=== PATIENT | female | born 1930 | race Caucasian/White ===

== ENCOUNTER 2016-08-22 09:08 | Observation (INO) | payer MEDICARE, OTHER ==
[~2016-08-22 09:08] MED LIST: ACETAMINOPHEN325 MG PO; ALTACE10 MG; ALTACE10 MG PO; BAYER CHEWABLE81 MG PO; CALCIUM 500 + D1 TAB PO; CHLORTHALIDONE25 MG PO; ISOSORBIDE MONO20 MG PO; NITROSTAT0.4 MG SL; NORVASC10 MG PO; PEPCID20 MG PO; PLAVIX75 MG PO; PRILOSEC20 MG PO; SPIRIVA18 MCG INH
[2016-08-22 09:34] LABS: BASOPHILS 0.6 % (0-2); EOSINOPHILS 1.3 % (0-7); HEMOGLOBIN 12.1 g/dL (12-16); IMMATURE GRANULOCYTES 0.4 % (0-5); LYMPHOCYTES 31.3 % (15-50); MCH 28.9 pg (26.0-34.0); MCHC 31.8 g/dL (31.0-37.0); MCV 90.9 fL (80.0-100.0); MEAN PLATELET VOLUME 10.4 fL (7.4-10.4); MONOCYTES 10.9 % (2-11); NEUTROPHILS 55.5 % (40-80); PLATELET COUNT 221 10x3/uL (130-400); RBC 4.18 10x6/uL (4.00-5.40); RDW 13.9 % (11.5-14.5); WBC 5.4 10x3/uL (4.8-10.8)
[2016-08-22 09:56] LABS: ALBUMIN 3.5 g/dL (3.4-5.0); ALKALINE PHOSPHATASE 100 U/L (46-116); ALT (SGPT) 20 U/L (10-68); BILIRUBIN - TOTAL 0.29 mg/dL (0.2-1.3); CALC OSMOLALITY 280 mosm/kg (275-300); CALCIUM 8.4 mg/dL (8.5-10.1); CARBON DIOXIDE 29.6 mmol/L (21.0-32.0); CHLORIDE - SERUM 104 mmol/L (98-107); CREATININE - SERUM 0.8 mg/dL (0.6-1.3); GLUCOSE 86 mg/dL (74-106); PROTEIN - SERUM 6.8 g/dL (6.4-8.2); SODIUM 141 mmol/L (136-145); UREA NITROGEN 16 mg/dL (7-18); eGFR NON AFRICAN AMERICAN 72 mL/min (90-120)
[2016-08-22 10:08] LABS: AMYLASE - SERUM 84 U/L (25-115); CHOL - HDL RATIO 1.9 ratio (2.3-4.1); CHOLESTEROL, TOTAL 167 mg/dL (0-200); CKMB 1.3 U/L (0.0-3.6); CREATINE KINASE 65 UL (21-215); HDL CHOLESTEROL 90 mg/dL (32-96); LDL CHOLESTEROL 56 mg/dL (0-100); LDL-HDL RATIO 0.6 ratio (1.5-3.5); LIPASE 253 U/L (73-393); PRO BNP 179 pg/mL (0-450); TRIGLYCERIDE 108 mg/dL (30-200); TROPONIN-I < 0.017 ng/mL (0.000-0.060)
[2016-08-22] MEDS ORDERED: COZAAR50 MG PO (13:48)
[2016-08-23 08:09] LABS: BASOPHILS 0.7 % (0-2); EOSINOPHILS 1.8 % (0-7); HEMATOCRIT 36.3 % (36.0-48.0); HEMOGLOBIN 11.7 g/dL (12-16); IMMATURE GRANULOCYTES 0.2 % (0-5); LYMPHOCYTES 11.2 % (15-50); MCH 29.3 pg (26.0-34.0); MCHC 32.2 g/dL (31.0-37.0); MEAN PLATELET VOLUME 10.5 fL (7.4-10.4); MONOCYTES 11.7 % (2-11); NEUTROPHILS 74.4 % (40-80); PLATELET COUNT 203 10x3/uL (130-400); RBC 3.99 10x6/uL (4.00-5.40); WBC 5.5 10x3/uL (4.8-10.8)
[2016-08-23 08:18] LABS: ANION GAP 11.1 mmol/L (8-16); CALCIUM 8.3 mg/dL (8.5-10.1); CARBON DIOXIDE 28.8 mmol/L (21.0-32.0); POTASSIUM - SERUM 3.9 mmol/L (3.5-5.1)
== END 2016-08-23 15:30 | disposition home or self-care (01) ==
LOC: D.ER 09:08 → D.M2 11:20
PROVIDERS: Family Medicine; ADMIT Internal Medicine Interventional Cardiology
DX: I25.119 Atherosclerotic heart disease of native coronary artery with unspecified angina pectoris (principal); Z95.5 Presence of coronary angioplasty implant and graft; I10 Essential (primary) hypertension; K21.9 Gastro-esophageal reflux disease without esophagitis

== ENCOUNTER 2016-09-21 10:12 | Inpatient (IN) | payer MEDICARE, OTHER ==
[~2016-09-21] VITALS: Ht 154.9 cm; Wt 67.8 kg
--- NOTE | ~2016-09-21 | OP ---
PATIENT NAME: MEIR CHEEK MEDICAL RECORD: [id number] :34 LOCATION:D.M2 D.2123 ADMISSION DATE:09/22/16 SURGEON: SHAMAR RAMIREZ MD DATE OF OPERATION: 09/25/2016 PREOPERATIVE DIAGNOSES: 1. Gallstones. 2. Chronic blood loss anemia. 3. Hiatal hernia. 4. Gastroesophageal reflux disease. 5. Ernie ulcers. 6. Hypertension. 7. Coronary artery disease. POSTOPERATIVE DIAGNOSES: 1. Gallstones. 2. Chronic blood loss anemia. 3. Hiatal hernia. 4. Gastroesophageal reflux disease. 5. Ernie ulcers. 6. Hypertension. 7. Coronary artery disease. PROCEDURE: Laparoscopic cholecystectomy. SURGEON: Shamar Ramirez MD. REPORT OF PROCEDURE: The patient's abdomen was prepped and draped in sterile fashion. A cutdown was made on the superior aspect of the umbilicus, 0 Vicryls were placed in the fascia bilaterally and the fascia was incised with a 15-blade. I then bluntly entered the peritoneal cavity and placed a 12-mm Rojelio port. Under direct visualization, a 5 mm trocar was placed in the epigastrium and 2 more 5-mm trocars were placed in the right subcostal region. The gallbladder was grasped and elevated. The cystic artery and duct were dissected free and these were clipped proximally and distally and ligated in standard fashion. The gallbladder was taken off the liver bed using electrocautery and placed into the right upper quadrant. Any bleeding from the liver bed was then treated with electrocautery. The ports and insufflation were then removed and the gallbladder was taken out through the umbilicus. The umbilical fascia was closed with interrupted 0 Vicryls times 3. The wounds were irrigated out with normal saline and infused with 10 mL of 0.25% Marcaine with epinephrine. The skin incisions were all closed with subcutaneous 5-0 Monocryl and dressed appropriately. COMPLICATIONS: None. CONDITION: Stable. ANESTHESIA: General endotracheal and local. BLOOD LOSS: Minimal. TRANSINT:[id number] Voice Confirmation ID: [id number] DOCUMENT ID: [id number] OPERATIVE REPORT [id number] RADHA CHEEKVIA Adelaida SHAMAR RAMIREZ MD CC: JAMIR ADORNO MD [id number] DICTATION DATE: 09/25/16 1114 CHILD WELFARE CONSULTANT: 09/25/16 2214 DIS IN 09/25/16 [facility] [address] [place] [address]
[~2016-09-21 10:12] MED LIST changes: +COZAAR50 MG PO
[2016-09-21 10:37] LABS: BASOPHILS 0.4 % (0-2); EOSINOPHILS 1.2 % (0-7); HEMATOCRIT 36.3 % (36.0-48.0); HEMOGLOBIN 11.9 g/dL (12-16); IMMATURE GRANULOCYTES 0.2 % (0-5); LYMPHOCYTES 17.1 % (15-50); MCH 29.2 pg (26.0-34.0); MCHC 32.8 g/dL (31.0-37.0); MCV 89.2 fL (80.0-100.0); MEAN PLATELET VOLUME 9.1 fL (7.4-10.4); MONOCYTES 10.9 % (2-11); NEUTROPHILS 70.2 % (40-80); RBC 4.07 10x6/uL (4.00-5.40); RDW 13.4 % (11.5-14.5); WBC 8.5 10x3/uL (4.8-10.8)
[2016-09-21 10:39] LABS: PLATELET COUNT 285 10x3/uL (130-400)
[2016-09-21 11:00] LABS: ANION GAP 14.1 mmol/L (8-16); CALCIUM 8.4 mg/dL (8.5-10.1); CARBON DIOXIDE 28.8 mmol/L (21.0-32.0); CREATININE - SERUM 0.9 mg/dL (0.6-1.3); POTASSIUM - SERUM 3.9 mmol/L (3.5-5.1)
--- NOTE | 2016-09-21 11:10 | NUR ---
RECIVED TO ROOM 2123 PER . ADMIT ASSESSMENT PER RN. DAUGHTER AT SIDE.
[2016-09-21 12:03] VITALS: BP 107/34; Ht 154.9 cm; Wt 67.8 kg
[2016-09-21 12:32] LABS: CKMB 0.4 U/L (0.0-3.6); CREATINE KINASE 63 UL (21-215); TROPONIN-I < 0.017 ng/mL (0.000-0.060)
--- NOTE | 2016-09-21 12:43 | NUR ---
IV access-20 gauge inserted in left forearm for access. Jannie Anderson RN
[2016-09-21 16:00] VITALS: BP 107/48
--- NOTE | 2016-09-21 18:13 | NUR ---
WITHOUT CHANGES OR DISTRESS NOTED AT THIS TIME.
--- NOTE | 2016-09-21 19:00 | NUR ---
INITIAL ROUNDS MADE. PT SITTING UP IN BED WATCHING TV WITH FAMILY IN ROOM. DENIES NEEDS OR C/O AT THIS TIME. CALL LIGHT IN REACH. WILL CONT TO MONITOR.
[2016-09-21 20:28] LABS: CKMB 0.7 U/L (0.0-3.6); CREATINE KINASE 82 UL (21-215)
[2016-09-21 20:33] LABS: TROPONIN-I < 0.017 ng/mL (0.000-0.060)
[2016-09-21 21:42] VITALS: BP 134/68
[2016-09-21 23:39] VITALS: BP 103/61
--- NOTE | 2016-09-22 00:38 | NUR ---
CORONARY CARE UNIT NURSE AT BEDSIDE FOR VS. NEEDS ADDRESSED AT THIS TIME. CALL LIGHT IN REACH. WILL CONT TO MONITOR.
[2016-09-22 04:01] VITALS: BP 108/50
[2016-09-22 05:04] LABS: CKMB 0.8 U/L (0.0-3.6); CREATINE KINASE 68 UL (21-215); TROPONIN-I < 0.017 ng/mL (0.000-0.060)
--- NOTE | 2016-09-22 05:25 | NUR ---
RESTING WELL WITH EYES CLOSED, CONT TO MONITOR.
[2016-09-22 05:39] LABS: ERYTHROCYTE SEDIMENTATION RATE 48 mm/hr (0-30)
--- NOTE | 2016-09-22 07:32 | NUR ---
ASSESSMENT DONE. DENIES NEEDS.
--- NOTE | 2016-09-22 09:32 | NUR ---
RESP UL ON . CALL LIGHT IN REACH. WILL CONT. PLAN OF CARE.
[2016-09-22 15:44] VITALS: BP 118/66
--- NOTE | 2016-09-22 16:59 | NUR ---
WITHOUT CHANGES OR DISTRESS NOTED AT THIS TIME. DENIES NEEDS.
--- NOTE | 2016-09-22 18:08 | CN ---
PATIENT NAME:MEIR CHEEK MEDICAL RECORD: [id number] : 34 LOCATION:D. D.2123 ADMIT DATE: 09/22/16 ACCOUNT: [id number] CONSULTING PHYSICIAN: PATTI DOUGLAS MD REFERRING PHYSICIAN: JAMIR ADORNO MD DATE OF CONSULTATION: 09/21/2016 Cardiology Consultation DIAGNOSES: 1. Chest pain. 2. Hypertension. 3. Hyperlipidemia. HISTORY OF PRESENT ILLNESS: Mrs. Cheek presents with chest pain. She had a similar presentation 3 weeks ago when she had chest pain. She had a cardiac catheterization. This was normal with no significant coronary artery disease. PHYSICAL EXAMINATION: GENERAL APPEARANCE: Well-nourished, well-developed, appears stated age. Level of distress, comfortable. PSYCHIATRIC: Mental status, alert, normal affect. Orientation, oriented to time, place and person. EYES: Lids and conjunctiva, noninjected. No discharge, no pallor. ENT: Lips, teeth, gums, normal dentition. Oropharynx, no cyanosis, no pallor. NECK: Carotid arteries, bilateral normal upstroke, no bruits, no thrills. JUGULAR VEINS: No jugular venous pressure or distention. CERVICAL LYMPH NODES: Nontender, nonenlarged. THYROID: Not enlarged. Nontender. No nodules. LUNGS: Respiratory effort, unlabored. CHEST: Normal curvature. No thoracic deformity. No chest wall tenderness. Percussion, resonant. Auscultation, clear. No wheezes, no rales, no rhonchi. CARDIOVASCULAR: Precordial exam, nondisplaced. No heaves or pericardial thrills. Rate and rhythm, regular. Heart sounds, normal S1, normal S2. No S3, no gallop, no rub. Systolic murmur, not heard. Diastolic murmur, not heard. EXTREMITIES: No cyanosis, no edema. Peripheral pulses, full and equal in all extremities, except as noted. No bruits appreciated. ABDOMEN: Soft, nondistended. Normal aorta. No bruit. Nontender. No masses. Liver, nontender, no hepatomegaly. Spleen, nontender, no splenomegaly. MUSCULOSKELETAL: No joint tenderness. No joint swelling. No erythema. NEUROLOGICAL: Normal gait, normal strength, normal tone. SKIN: Warm and dry. REVIEW OF SYSTEMS: The patient reports easy bruising but reports no swollen glands. The patient reports no fever, no night sweats, no significant weight gain, no significant weight loss. No significant exercise tolerance. The patient reports no dry eyes, no irritation, no vision change. Patient reports no difficulty hearing and no ear pain. Patient reports no frequent nose bleeds or nose and sinus problems. Patient reports on arm pain on exertion. No shortness of breath while lying down. No history of heart murmur. Patient reports no cough, no wheezing or coughing up blood. Patient reports no abdominal pain, no vomiting. Normal appetite. No diarrhea and not vomiting blood. No nausea and no constipation. Patient reports no incontinence. No difficulty urinating. No hematuria. No increased frequency. Patient reports no muscle aches. No weakness, no arthralgias, no back pain. No swelling of the CONSULT REPORT [id number] MEIR CHEEK extremities. Patient reports no abnormal mole, no jaundice, no rashes. Reports no loss of consciousness. No weakness and no numbness. No seizures, dizziness, or headaches. The patient reports no depression, no sleep disturbance, feeling safe in a relationship and no alcohol abuse. Patient reports on fatigue. Reports no runny nose or sinus pressure. No itching, no hives, and no frequent sneezing. OVERALL IMPRESSION: Chest pain, normal cardiac catheterization. This is noncardiac. No further cardiac workup needs to be ascertained. TRANSINT:[id number] Voice Confirmation ID: [id number] DOCUMENT ID: [id number] PATTI DOUGLAS MD at 1808 CC: [id number] DICTATION DATE: 09/21/16 122 LARYNGOLOGIST: 09/21/162121 ADM IN [place] [id number] [place] [address]
--- NOTE | 2016-09-22 18:34 | CN ---
PATIENT NAME:MEIR CHEEK MEDICAL RECORD: [id number] : 34 LOCATION:D. D.2123 ADMIT DATE: 09/22/16 ACCOUNT: [id number] CONSULTING PHYSICIAN: TRISTAN CASTORENA MD REFERRING PHYSICIAN: TRISTAN ADORNO MD DATE OF CONSULTATION: 09/21/2016 GASTROINTESTINAL CONSULTATION DATE OF CONSULTATION: 09/21/2016. REFERRING PHYSICIAN: Dr. Tristan Adorno. HISTORY OF PRESENT ILLNESS: The patient is an 86-year-old white female with history of chronic obstructive pulmonary disease, hypertension, coronary artery disease status post stent placement, who basically was admitted with a several year history of very atypical chest pain seems to be more constant anything and can occur /. It is not related to meals, exertion, etc. It can last for hours. It usually does not waken her from sleep. She denies any associated nausea with the pain. However, she does complain of some postprandial issues of epigastric pain, nausea and such. She has never had endoscopy and does not sound like she had a biliary tract workup. She has occasional constipation. She denies any associated weight loss. ____ she has had a couple of stents over the past 2 years of her heart with this pain, however, her last 2 cardiac catheterizations revealed normal coronaries. PAST MEDICAL HISTORY: As above, she also has cataract. PAST SURGICAL HISTORY: Remarkable for hip surgery, cataract surgery, hysterectomy and bladder suspension. ALLERGIES: PENICILLIN AND RAMIPRIL. HOME MEDICATIONS: Include chlorthalidone, Prilosec 20 mg daily, Tylenol, aspirin, nitroglycerin p.r.n., Spiriva, Cozaar. FAMILY HISTORY: Negative for GI disease. SOCIAL HISTORY: The patient is a longtime smoker. She denies alcohol use. REVIEW OF SYSTEMS: Noncontributory other than in the HPI. PHYSICAL EXAMINATION: GENERAL: Reveals an elderly white female in no acute distress. VITAL SIGNS: Stable. She is afebrile. CHEST: Clear. HEART: Regular rate and rhythm. ABDOMEN: Soft, nontender. EXTREMITIES: No edema. She is not really having any chest wall tenderness. LABORATORY DATA: Reveals normal electrolytes, normal renal function, normal liver enzymes. White count 8000, hematocrit 36, MCV of 89 with a normal differential. Liver enzymes are normal. Amylase and lipase are normal. Chest x-ray is normal other than questionable right upper lobe atelectasis versus very early pneumonia. She had an upper GI back in 2015, which revealed a moderate CONSULT REPORT [id number] MEIR CHEEK sized hiatal hernia and moderate reflux disease. IMPRESSION: 1. Atypical chest pain of uncertain etiology. The pain is not really sound GI in origin, but I agree she probably needs an upper endoscopy to rule out any significant GI pathology. It looks like she does have a hiatal hernia ____ upper GI, a couple of years ago as noted above. 2. History of reflux disease, already on Prilosec daily. Also, need to consider gallbladder issues, obstipation, etc. RECOMMENDATION: 1. EGD. 2. KUB. 3. PIPIDA with CCK. 4. Ultrasound of the gallbladder. 5. Check a sed rate, C-reactive protein, TSH. TRANSINT:[id number] Voice Confirmation ID: [id number] DOCUMENT ID: [id number] TRISTAN CASTORENA MD at 1834 CC: TRISTAN ADORNO MD and PATTI DOUGLAS MD [id number] DICTATION DATE: 09/21/16 180 ACOUSTICAL INSTALLER: 09/22/16 0215 ADM IN [facility] [address] [id number]
--- NOTE | 2016-09-22 19:00 | NUR ---
INITIAL ROUNDS MADE. PT SITTING UP IN BED WATCHING TV. NO NEEDS OR C/O AT THIS TIME. CALL LIGHT IN REACH. WILL CONT TO MONITOR.
[2016-09-22 21:17] VITALS: BP 94/44
[2016-09-23 00:41] VITALS: BP 102/53
[2016-09-23 04:23] VITALS: BP 104/55
[2016-09-23 05:49] LABS: BASOPHILS 0 % (0-2); EOSINOPHILS 0 % (0-7); HEMATOCRIT 33.6 % (36.0-48.0); HEMOGLOBIN 10.9 g/dL (12-16); IMMATURE GRANULOCYTES 0.9 % (0-5); LYMPHOCYTES 6.2 % (15-50); MCH 28.8 pg (26.0-34.0); MCHC 32.4 g/dL (31.0-37.0); MCV 88.7 fL (80.0-100.0); MEAN PLATELET VOLUME 10.1 fL (7.4-10.4); MONOCYTES 5.2 % (2-11); NEUTROPHILS 87.7 % (40-80); RBC 3.79 10x6/uL (4.00-5.40); RDW 13.4 % (11.5-14.5)
[2016-09-23 05:50] LABS: PLATELET COUNT 348 10x3/uL (130-400); WBC 15.6 10x3/uL (4.8-10.8)
[2016-09-23 06:11] LABS: ALBUMIN 2.9 g/dL (3.4-5.0); BILIRUBIN - TOTAL 0.22 mg/dL (0.2-1.3); CALCIUM 8.4 mg/dL (8.5-10.1); CARBON DIOXIDE 25.5 mmol/L (21.0-32.0); POTASSIUM - SERUM 3.5 mmol/L (3.5-5.1); PROTEIN - SERUM 6.9 g/dL (6.4-8.2)
[2016-09-23 08:00] VITALS: BP 112/55
--- NOTE | 2016-09-23 10:05 | NUR ---
IV ACCESS-22 GAUGE INSERTED IN LEFT HAND FOR ACCESS. ANAI SAUL RN
[2016-09-23 12:00] VITALS: BP 123/54
[2016-09-23 15:52] VITALS: BP 139/61
--- NOTE | 2016-09-23 17:06 | NUR ---
THIS SHIFT: PT WENT FOR EGD EARLIER AND OLY WELL. NO DISTRESS, NO SWALLOWING ISSUES. NOW AT THIS TIME EATING DINNER WITHOUT DIFFICUTLY. MONITOR SHOWS SR @82. SEE ASSESSMENT FOR FURTHER EVAL
[2016-09-23 19:00] VITALS: BP 101/53
--- NOTE | 2016-09-23 20:19 | NUR ---
RESUMED CARE OF PT, LYING IN BED RESPIRATIONS EVEN AND UNLABORED ON 2LPM VIA NC. 85 SR ON TELEMETRY. NO NEEDS VOICED AT THIS TIME. WILL CONTINUE TO MONITOR. SEE NURSE ASSESSMENT. CALL LIGHT IN REACH.
[2016-09-24 04:00] VITALS: BP 118/49
[2016-09-24 05:46] LABS: BASOPHILS 0.1 % (0-2); EOSINOPHILS 0 % (0-7); HEMATOCRIT 33.5 % (36.0-48.0); IMMATURE GRANULOCYTES 2.2 % (0-5); LYMPHOCYTES 5.9 % (15-50); MCH 29.4 pg (26.0-34.0); MCHC 32.8 g/dL (31.0-37.0); MCV 89.6 fL (80.0-100.0); MONOCYTES 3.4 % (2-11); NEUTROPHILS 88.4 % (40-80); PLATELET COUNT 348 10x3/uL (130-400); RBC 3.74 10x6/uL (4.00-5.40); RDW 13.6 % (11.5-14.5)
[2016-09-24 06:04] LABS: WBC 11.3 10x3/uL (4.8-10.8)
[2016-09-24 06:08] LABS: ALBUMIN 2.8 g/dL (3.4-5.0); ANION GAP 12.3 mmol/L (8-16); BILIRUBIN - TOTAL 0.2 mg/dL (0.2-1.3); CARBON DIOXIDE 27.4 mmol/L (21.0-32.0); POTASSIUM - SERUM 3.7 mmol/L (3.5-5.1); PROTEIN - SERUM 6.5 g/dL (6.4-8.2)
--- NOTE | 2016-09-24 07:30 | NUR ---
RECEIVED PT IN BED AAOX4 NADEEM UNLABORED NAD NOTED PT DENIES ANY NEEDS OR DISCOMFORT AT THIS TIME
[2016-09-24 08:41] VITALS: BP 107/59
[2016-09-24 12:54] VITALS: BP 124/77
[2016-09-24 16:20] VITALS: BP 105/63; BP 125/57
--- NOTE | 2016-09-24 18:20 | PRO ---
PATIENT:MEIR CHEEK MEDICAL RECORD: [id number] : 34 LOCATION:D.M2 D.2123 ADMISSION DATE: 09/22/16 PROCEDURE PERFORMED BY: TIRSTAN BURRELL MD DATE OF PROCEDURE: 09/23/2016 DATE OF PROCEDURE: 09/23/2016 TRANSFER PUMPER: Tristan Burrell MD. PROCEDURE: EGD with biopsy. INDICATION: The patient is an 86-year-old white female with a history of coronary artery disease, but was admitted with atypical chest pain. The recent KUB was negative. Ultrasound of the gallbladder did reveal gallstones ____ was negative. She is already on Prilosec daily. She is now for EGD. PREMEDICATION: Taper anesthesia. INSTRUMENT: Olympus video gastroscope. FINDINGS: The endoscope was passed through the oropharynx to the second portion of duodenum without difficulty. The esophagus was remarkable for somewhat tortuous atonic appearing esophagus, but there was no inflammation present and no active esophagitis. The GE junction was widely patent. The stomach was entered and was remarkable for a moderate sized 5 cm hiatal hernia with definite Ernie erosions at the base of her hernia sac. It is a little friable, but otherwise unremarkable. The rest of stomach was entered and was remarkable only for scant gastritis. Biopsy obtained from the stomach to rule out H. pylori by means of histology. The duodenum was entered and was completely normal. The patient tolerated the procedure well without any complications. IMPRESSION: 1. Somewhat atonic appearing esophagus, probably no clinical significance. 2. Moderate size hiatal hernia with definite Ernie erosions present. This could possibly cause a heme-positive stool and/or chronic iron deficiency anemia; however, it is unlikely to be causing any of her symptoms. 3. Scant gastritis. 4. Otherwise, normal esophagogastroduodenoscopy. 5. Atypical chest pain, still of unclear etiology ____ leaning that this is more of a gallbladder issue anything else. RECOMMENDATIONS: 1. I will increase her Prilosec/Protonix to twice daily since she does have these Ernie erosions present. 2. Follow up biopsy results of her stomach and esophagus. 3. I will recommend surgical consultation for possible laparoscopic cholecystectomy in light of her known cholelithiasis. This could be a contributing cause of her very atypical chest pain. TRANSINT:[id number] Voice Confirmation ID: [id number] DOCUMENT ID: [id number] PROCEDURE NOTE [id number] MEIR CHEEK JOHN MD at 1820 CC: TRISTAN ADORNO MD [id number] DICTATION DATE: 09/23/16 1047 HUMAN RESOURCES DEPARTMENT SUPERVISOR: 09/24/16 0305 ADM IN [facility] [address] [id number]
[2016-09-24 19:00] VITALS: BP 150/83
--- NOTE | 2016-09-24 19:46 | NUR ---
PT RECEIVED LYING IN BED AAOX3 WATCHING TV AT THIS TIME. ASSESSMENT COMPLETED PER FLOW SHEET AT THIS TIME. PT DENIES NEEDS. BED LOW. PHONE AND CALL LIGHT IN REACH. SRX2.
--- NOTE | 2016-09-24 21:45 | NUR ---
PM MEDS GIVEN AT THIS TIME. PT DENIES NEEDS. BED LOW. PHONE AND CALL LIGHT IN REACH. SRX2.
--- NOTE | 2016-09-24 23:23 | NUR ---
PT RESTING QUIETLY AT THIS TIME WITH EYES CLOSED. RESPIRATIONS EVEN, NON-LABORED. NO ACUTE DISTRESS NOTED AT THIS TIME. BED LOW. PHONE AND CALL LIGHT IN REACH. SRX2.
[2016-09-25] VITALS: BP 138/73
[2016-09-25 04:00] VITALS: BP 141/80
--- NOTE | 2016-09-25 05:44 | NUR ---
PT RESTING QUIETLY AT THIS TIME WITH EYES CLOSED. AROUSED EASILY. PT DENIES NEEDS. STATES SHE HAS NOT HAD A BM YET EVEN AFTER TAKING MIRALAX. STATES SHE IS PASSING GAS AND DENIES ANY PAIN. BED LOW. PHONE AND CALL LIGHT IN REACH. SRX2.
[2016-09-25 06:14] LABS: ALBUMIN 2.6 g/dL (3.4-5.0); ANION GAP 12.3 mmol/L (8-16); BILIRUBIN - TOTAL 0.2 mg/dL (0.2-1.3); CALCIUM 7.9 mg/dL (8.5-10.1); CARBON DIOXIDE 28.3 mmol/L (21.0-32.0); POTASSIUM - SERUM 3.6 mmol/L (3.5-5.1)
[2016-09-25 06:21] LABS: HEMATOCRIT 32.1 % (36.0-48.0); HEMOGLOBIN 10.7 g/dL (12-16); LYMPHOCYTES 19.9 % (15-50); MCH 29.2 pg (26.0-34.0); MCHC 33.3 g/dL (31.0-37.0); MCV 87.7 fL (80.0-100.0); MEAN PLATELET VOLUME 9.4 fL (7.4-10.4); PLATELET COUNT 316 10x3/uL (130-400); RBC 3.66 10x6/uL (4.00-5.40); RDW 13.1 % (11.5-14.5); WBC 11.2 10x3/uL (4.8-10.8)
--- NOTE | 2016-09-25 07:30 | NUR ---
RECEIVED PT IN BED AAOX4 RESP UNLABORED DENIES ANY NEEDS OR DISCOMFORT AT THIS TIME
[2016-09-25 08:12] VITALS: BP 126/77
--- NOTE | 2016-09-25 09:30 | NUR ---
TO OR VIA BED PER STAFF
--- NOTE | 2016-09-25 10:46 | NUR ---
PATIENT NOTED TO HAVING DARK BLUE AND PURPLE BRUISING ON RIGHT ARM AND ABDOMEN WITH SOME SCRATCHES NOTED ON ABDOMEN WELL, KENNEDY.
[2016-09-25 12:10] VITALS: BP 135/72
--- NOTE | 2016-09-25 12:10 | NUR ---
RECEIVED PT BACK FROM RECOVERY IN STABLE CONDITION VSS ABDOMEN SLIGHTLY DISTENDED BRUISING AND BANDAID DRSG INTACT AAOX4 DENIES ANY PAIN AT THIS TIME
[2016-09-25] MEDS ORDERED: HYDROCODONE-APA1 TAB PO (13:36)
[2016-09-25] MEDS ORDERED: PREDNISONE20 MG PO (13:38)
[2016-09-25 15:43] VITALS: BP 125/77
== END 2016-09-25 20:31 | disposition home health service (06) | DRG 419 ==
LOC: OBSVTIME 10:12 → D.SDCHOLD 10:12 → D.M2 10:12
PROVIDERS: Internal Medicine Gastroenterology; Surgery; ADMIT Family Medicine
PROC: 0DB68ZX Excision of Stomach, Via Natural or Artificial Opening Endoscopic, Diagnostic (ICD-10-PCS; 2016-09-23)
PROC: 0FT44ZZ Resection of Gallbladder, Percutaneous Endoscopic Approach (ICD-10-PCS; principal; 2016-09-25 09:30)
DX: K80.70 Calculus of gallbladder and bile duct without cholecystitis without obstruction (principal); K44.9 Diaphragmatic hernia without obstruction or gangrene; K29.70 Gastritis, unspecified, without bleeding; I10 Essential (primary) hypertension; E78.5 Hyperlipidemia, unspecified; K21.9 Gastro-esophageal reflux disease without esophagitis; I25.10 Atherosclerotic heart disease of native coronary artery without angina pectoris; J44.9 Chronic obstructive pulmonary disease, unspecified; D50.0 Iron deficiency anemia secondary to blood loss (chronic)

== ENCOUNTER 2017-02-03 07:47 | Emergency (ER) | payer MEDICARE, OTHER ==
[2016-09-21 12:03] VITALS: BMI 29.1
[~2017-02-03 07:47] MED LIST changes: +HYDROCODONE-APA1 TAB PO; +PREDNISONE20 MG PO
[2017-02-03 08:16] LABS: BASOPHILS 0.4 % (0-2); HEMATOCRIT 37.8 % (36.0-48.0); HEMOGLOBIN 12.3 g/dL (12-16); IMMATURE GRANULOCYTES 0.3 % (0-5); LYMPHOCYTES 29.5 % (15-50); MCH 29.4 pg (26.0-34.0); MCHC 32.5 g/dL (31.0-37.0); MCV 90.2 fL (80.0-100.0); MEAN PLATELET VOLUME 10.3 fL (7.4-10.4); MONOCYTES 11.2 % (2-11); NEUTROPHILS 57.6 % (40-80); PLATELET COUNT 261 10x3/uL (130-400); RBC 4.19 10x6/uL (4.00-5.40); RDW 13.5 % (11.5-14.5); WBC 6.8 10x3/uL (4.8-10.8)
[2017-02-03 08:37] LABS: ALBUMIN 3.3 g/dL (3.4-5.0); ALKALINE PHOSPHATASE 86 U/L (46-116); ALT (SGPT) 16 U/L (10-68); BILIRUBIN - TOTAL 0.32 mg/dL (0.2-1.3); CALC OSMOLALITY 274 mosm/kg (275-300); CALCIUM 8.5 mg/dL (8.5-10.1); CARBON DIOXIDE 28.1 mmol/L (21.0-32.0); CHLORIDE - SERUM 102 mmol/L (98-107); CREATININE - SERUM 0.8 mg/dL (0.6-1.3); GLUCOSE 92 mg/dL (74-106); POTASSIUM - SERUM 3.5 mmol/L (3.5-5.1); PROTEIN - SERUM 6.7 g/dL (6.4-8.2); SODIUM 137 mmol/L (136-145); UREA NITROGEN 14 mg/dL (7-18); eGFR NON AFRICAN AMERICAN 72 mL/min (90-120)
[2017-02-03 08:49] LABS: CKMB 0.5 U/L (0.0-3.6); CREATINE KINASE 61 UL (21-215)
[2017-02-03 08:53] LABS: TROPONIN-I < 0.017 ng/mL (0.000-0.060)
== END 2017-02-03 14:27 | disposition home or self-care (01) ==
LOC: D.ER 07:47
PROVIDERS: Emergency Medicine
DX: R07.9 Chest pain, unspecified (principal); M25.512 Pain in left shoulder; J44.9 Chronic obstructive pulmonary disease, unspecified; I10 Essential (primary) hypertension

== ENCOUNTER → 2017-12-03 15:30 | Outpatient (CLI) | payer MEDICARE, OTHER ==
[2017-08-04 12:54] VITALS: BMI 27.7
== END | disposition home or self-care (01) ==
LOC: D.CT 15:30
DX: M79.605 Pain in left leg (principal); M79.604 Pain in right leg; R60.9 Edema, unspecified

== ENCOUNTER → 2018-03-18 12:32 | Outpatient (CLI) | payer MEDICARE, OTHER ==
[2017-08-04 12:54] VITALS: BMI 27.7
[~2018-03-18 12:32] MED LIST changes: +MAG-OXIDE400 MG PO
== END | disposition home or self-care (01) ==
LOC: D.US 12:32
DX: M79.604 Pain in right leg (principal)

== ENCOUNTER 2018-03-19 15:13 | Inpatient (IN) | payer MEDICARE, OTHER ==
[~2018-03-19] VITALS: Ht 154.9 cm; Wt 70.3 kg
--- NOTE | ~2018-03-19 | MORECARE ---
CASE MANAGEMENT DISCHARGE SUMMARY PATIENT: MEIR CHEEK UNIT: [id number] ADM DATE: 03/19/18 AGE: 87 : 32 SEX: F ROOM/BED: D.2201 AUTHOR: JUS MORE PHYSICIAN: REFERRING PHYSICIAN: JAMIR ADORNO MD DATE OF SERVICE: 03/22/18 Discharge Plan Patient Name: MEIR CHEEK Facility: [facility]:[place] : 1930 Planned Disposition: Inpatient Rehab Anticipated Discharge Date: Discharge Date: Expected LOS: Initial Reviewer: [email or web address] Initial Review Date: 03/19/2018 Generated: 03/22/18 1:07 pm Comments DCP- Discharge Planning Updated by [email or web address]: Rosio Espitia on 03/22/18 11:[address] Patient Name: MEIR CHEEK Admission Status: ER Accout number: [id number] Admission Date: 03-19-2018 : 1930 Admission Diagnosis:MULTIPLE FX OF PELVIS W/O DISRUPT OF PELVIC RING, INIT Attending: JAMIR ADORNO Current LOS: 3 Anticipated DC Date: Planned Disposition: Inpatient Rehab Primary Insurance: MEDICARE A & B Discharge Planning Comments: CM met with patient and family to assess discharge planning needs. Patient lives independently at home and would like to return there after rehab. She plans on discharging to inpatient rehab at [facility] today. She lives a couple of houses down from her daughter. She has a very good support system at home. She has a walker that she uses at times. IMM served and explained. CM will continue to follow and assist with dc planning as needed Mica Splitter: Rosio Espitia DCPIA - Discharge Planning Initial Assessment Updated by [email or web address]: Rosio Espitia on 03/22/18 12:00 pm * Is the patient Alert and Oriented? Yes * PCP [facility] * Pharmacy [facility] * Preadmission Environment Home Alone * ADLs Independent * Equipment Rolling Walker * List name and contact numbers for known caregivers / representatives who currently or will assist patient after discharge: JAYSON ESPITIA (DAUGHTER) [phone] * Verbal permission to speak to the caregivers and representatives has been obtained from the patient. Yes * Community resources currently utilized None * Additional services required to return to the preadmission environment? Yes * Can the patient safely return to the preadmission environment? No * Has this patient been hospitalized within the prior 30 days at any hospital? No Patient Name: MEIR CHEEK Page 18187 at 1207 All edits/amendments must be made on the electronic document DICTATION DATE: 03/22/181205 BLISTER RUST ERADICATOR: IRINA 03/22/181205 RPT#: [id number] DC DATE: STATUS: ADM IN [facility] [address] [place] [address] END OF REPORT
--- NOTE | ~2018-03-19 | MORECARE ---
CASE MANAGEMENT DISCHARGE SUMMARY PATIENT: MEIR CHEEK UNIT: [id number] ADM DATE: 03/19/18 AGE: 87 : 32 SEX: F ROOM/BED: D.2201 AUTHOR: JUS MORE PHYSICIAN: REFERRING PHYSICIAN: JAMIR ADORNO MD DATE OF SERVICE: 03/23/18 Discharge Plan Patient Name: MEIR CHEEK Facility: [facility]:[place] : 1930 Planned Disposition: Inpatient Rehab Anticipated Discharge Date: Discharge Date: 03/22/2018 Expected LOS: 0 Initial Reviewer: [email or web address] Initial Review Date: 03/19/2018 Generated: 03/23/18 10:00 am Comments DCP- Discharge Planning Updated by [email or web address]: Rosio Espitia on 03/22/18 11:[address] Patient Name: MEIR CHEEK Admission Status: ER Accout number: [id number] Admission Date: 03-19-2018 : 1930 Admission Diagnosis:MULTIPLE FX OF PELVIS W/O DISRUPT OF PELVIC RING, INIT Attending: JAMIR ADORNO Current LOS: 3 Anticipated DC Date: Planned Disposition: Inpatient Rehab Primary Insurance: MEDICARE A & B Discharge Planning Comments: CM met with patient and family to assess discharge planning needs. Patient lives independently at home and would like to return there after rehab. She plans on discharging to inpatient rehab at [facility] today. She lives a couple of houses down from her daughter. She has a very good support system at home. She has a walker that she uses at times. IMM served and explained. CM will continue to follow and assist with dc planning as needed Executive Creative Director: Rosio Espitia DCPIA - Discharge Planning Initial Assessment Updated by [email or web address]: Rosio Espitia on 03/22/18 12:00 pm * Is the patient Alert and Oriented? Yes * PCP T[facility] * Pharmacy [facility] * Preadmission Environment Home Alone * ADLs Independent * Equipment Rolling Walker * List name and contact numbers for known caregivers / representatives who currently or will assist patient after discharge: JAYSON ESPITIA (DAUGHTER) [phone] * Verbal permission to speak to the caregivers and representatives has been obtained from the patient. Yes * Community resources currently utilized None * Additional services required to return to the preadmission environment? Yes * Can the patient safely return to the preadmission environment? No * Has this patient been hospitalized within the prior 30 days at any hospital? No Coverage Notice Reviewer: [email or web address] Elizabeth Espitia Notice Issued Date-Time: 03/22/2018 12:00 Notice Type: IM Discharge Notice Notice Delivered To: Patient Relationship to Patient: Air Conditioning Equipment Mechanic Name: Delivery Method: HAND - Hand Delivered Janee Days: Prior Verbal Notification: Recipient Understood Notice: Yes Recipient Signature: Yes Med Rec Note Co-signed by Attending: Coverage Notice Comment: Last DP export: 03/22/18 11:07 Patient Name: MEIR CHEEK Page 37825 at 0900 All edits/amendments must be made on the electronic document DICTATION DATE: 03/23/18899 HEAD USHER: IRINA 03/23/18899 RPT#: [id number] DC DATE:03/22/18 STATUS: DIS IN [facility] [address] [place] [address] END OF REPORT
[~2018-03-19 15:13] MED LIST changes: -MAG-OXIDE400 MG PO
[2018-03-19 16:36] LABS: BASOPHILS 0.3 % (0-2); EOSINOPHILS 0.3 % (0-7); HEMATOCRIT 33.3 % (36.0-48.0); HEMOGLOBIN 10.7 g/dL (12-16); IMMATURE GRANULOCYTES 0.6 % (0-5); LYMPHOCYTES 9.5 % (15-50); MCH 29.5 pg (26.0-34.0); MCHC 32.1 g/dL (31.0-37.0); MCV 91.7 fL (80.0-100.0); MONOCYTES 9.1 % (2-11); NEUTROPHILS 80.2 % (40-80); PLATELET COUNT 240 10x3/uL (130-400); RBC 3.63 10x6/uL (4.00-5.40); RDW 13.3 % (11.5-14.5); WBC 10.1 10x3/uL (4.8-10.8)
[2018-03-19 16:42] LABS: INR 0.95 (0.85-1.17); PROTIME 12.3 SECONDS (11.6-15.0)
[2018-03-19 16:49] LABS: ALBUMIN 3.2 g/dL (3.4-5.0); ALKALINE PHOSPHATASE 78 U/L (46-116); ALT (SGPT) 16 U/L (10-68); BILIRUBIN - TOTAL 0.23 mg/dL (0.2-1.3); CALC OSMOLALITY 284 mosm/kg (275-300); CALCIUM 8.4 mg/dL (8.5-10.1); CARBON DIOXIDE 30.5 mmol/L (21.0-32.0); CHLORIDE - SERUM 105 mmol/L (98-107); GLUCOSE 99 mg/dL (74-106); POTASSIUM - SERUM 3.8 mmol/L (3.5-5.1); PROTEIN - SERUM 6.5 g/dL (6.4-8.2); SODIUM 142 mmol/L (136-145); UREA NITROGEN 17 mg/dL (7-18); eGFR NON AFRICAN AMERICAN 56 mL/min (90-120)
[2018-03-19 16:50] VITALS: BP 134/53
[2018-03-19 17:00] LABS: CKMB 0.8 U/L (0.0-3.6); CREATINE KINASE 80 UL (21-215); PRO BNP 107 pg/mL (0-450)
[2018-03-19 17:30] VITALS: BP 119/85
[2018-03-19 17:58] LABS: APPEARANCE CLEAR (CLEAR); BILIRUBIN NEGATIVE (NEGATIVE); COLOR YELLOW (YELLOW); GLUCOSE NEGATIVE (NEGATIVE); KETONE NEGATIVE (NEGATIVE); NITRITE NEGATIVE (NEGATIVE); PROTEIN NEGATIVE (NEGATIVE); UROBILINOGEN NORMAL (NORMAL)
[2018-03-19 19:01] VITALS: BP 119/58
[2018-03-20] MEDS ORDERED: MAG-OXIDE400 MG PO (01:04)
[2018-03-20 01:52] VITALS: BP 105/76; BMI 29.3
[2018-03-20 05:48] VITALS: BP 127/65
[2018-03-20 08:23] VITALS: BP 108/54
[2018-03-20 12:16] VITALS: BP 128/55
[2018-03-20 16:40] VITALS: BP 117/55
[2018-03-20 21:55] VITALS: BP 108/49; BP 109/59
[2018-03-21] VITALS: BP 129/57
[2018-03-21 04:35] LABS: BASOPHILS 0.1 % (0-2); EOSINOPHILS 0.1 % (0-7); HEMATOCRIT 31.9 % (36.0-48.0); HEMOGLOBIN 10.2 g/dL (12-16); IMMATURE GRANULOCYTES 0.3 % (0-5); LYMPHOCYTES 10.3 % (15-50); MCH 28.9 pg (26.0-34.0); MCV 90.4 fL (80.0-100.0); MEAN PLATELET VOLUME 10.3 fL (7.4-10.4); MONOCYTES 12.9 % (2-11); NEUTROPHILS 76.3 % (40-80); PLATELET COUNT 224 10x3/uL (130-400); RBC 3.53 10x6/uL (4.00-5.40); RDW 13.1 % (11.5-14.5); WBC 9.5 10x3/uL (4.8-10.8)
[2018-03-21 05:00] VITALS: BP 119/59
[2018-03-21 10:39] VITALS: Ht 154.9 cm; Wt 70.3 kg
[2018-03-21 12:41] VITALS: BP 111/45
[2018-03-21 19:02] VITALS: BP 126/61
[2018-03-21 20:33] VITALS: BP 126/60
[2018-03-22 02:35] VITALS: BP 110/54
[2018-03-22 05:01] VITALS: BP 124/64
[2018-03-22 09:59] VITALS: BP 123/67
== END 2018-03-22 16:25 | DRG 536 ==
LOC: D.ER 15:13 → D.MS 17:39 → D.EDHOLD 17:39 → D.MS 18:51
PROVIDERS: Emergency Medicine; Family Medicine
DX: S32.519A Fracture of superior rim of unspecified pubis, initial encounter for closed fracture (principal); W19.XXXA Unspecified fall, initial encounter; I10 Essential (primary) hypertension; I25.10 Atherosclerotic heart disease of native coronary artery without angina pectoris; J44.9 Chronic obstructive pulmonary disease, unspecified; R13.10 Dysphagia, unspecified; K44.9 Diaphragmatic hernia without obstruction or gangrene

== ENCOUNTER 2018-03-22 15:46 | Inpatient (IN) | payer MEDICARE, OTHER ==
[~2018-03-22] VITALS: Ht 154.9 cm; Wt 70.3 kg
--- NOTE | ~2018-03-22 | RHP ---
PATIENT: MEIR CHEEK MEDICAL RECORD: [id number] ACCOUNT: [id number] LOCATION:[facility]1112 : 32 ADMISSION DATE: 03/22/18 REHABILITATION HISTORY AND PHYSICAL EXAMINATION POST ADMISSION PHYSICIAN EXAMINATION ADMITTING DIAGNOSIS: Right superior and inferior pubic ramus fracture. HISTORY OF PRESENT ILLNESS: The patient is an 87-year-old female patient admitted to rehab with a displaced fracture of the right superior and inferior pubic rami. She has got a history of coronary artery disease, presented to ED on 03/19/2018 status post a fall in her kitchen, had severe pain, difficulty ambulating. She denied syncope or any other problems or loss of consciousness. She has pelvic fractures noted. She has also severe arthritis in her knee with a flare of this. She has a right knee hematoma and left knee arthritis also. Orthopedic plan included a left lower extremity weightbearing as tolerated, right lower extremity 25 pounds pressure weightbearing as needed and she will also follow up with ortho. GI was consulted during her stay secondary to some chest pain and complained of food getting stuck. She had similar symptoms before, was seen by Dr. Burrell. She had atonic appearing esophagus, mild sized hiatal hernia with Ernie's erosions and scant gastritis, no etiology was found for her chest pain. On 03/21/2018, barium swallow showed tertiary contractions consistent with esophagus and hiatal hernia. No stricture was noted at that time. Complex comorbidities require management by rehabilitation physician to ensure a safe and effective treatment during this stay include management of her hypertension, coronary artery disease, COPD, and dysphagia. BARRIERS TO DISCHARGE: Include loss in mobility, pain, living alone, self-care deficits in bowel and bladder training. Prior to this fall, she apparently was living alone, was independent with ADLs and ambulation. She does have a rolling walker and uses it occasionally. She is currently mod-to-max assist for ADLs, max assist for ambulation with a rolling walker. She will require intensive therapy including PT, OT, speech therapy, 24-hour nursing and case management in order to get her back to her prior level of functioning and hopefully return home. COMORBIDITIES: In this patient include dysphagia, coronary artery disease, hypertension, stents and angioplasty, arthritis in her knees, gastroesophageal reflux disease, COPD, emphysema, history of fall and hiatal hernia. PAST MEDICAL HISTORY: Significant for cataracts, allergies, hypertension, coronary artery disease, angina, COPD, emphysema. PAST SURGICAL HISTORY: Includes cataract surgery, appendectomy, hysterectomy, bladder repair, gallbladder surgery and eyelid surgery. ALLERGIES: PENICILLIN AND ALTACE. CURRENT MEDICATIONS: Include Protonix 40 mg daily, Mag-Ox 400 mg daily, Cozaar 50 mg daily, chlorthalidone 25 mg daily, she is on aspirin chewable 81 mg daily, Tudorza 1 inhalation b.i.d., nitroglycerin 0.4 mg every 5 hours p.r.n., Mulberry 10/325 one tab every 6 hours p.r.n. and Tylenol 650 every 4 hours p.r.n. HABITS: No alcohol or tobacco use. HISTORY AND PHYSICAL [id number] MEIR CHEEK FAMILY HISTORY: Noncontributory. SOCIAL HISTORY: The patient hopes to return back home and get back to her prior level of functioning. REVIEW OF SYSTEMS: GENERAL: Does complain of weakness and fatigue. HEENT: Denies cold, cough, or congestion. CARDIOVASCULAR: Denies any chest pain. PHYSICAL EXAMINATION: VITAL SIGNS: Stable, afebrile. GENERAL: An elderly female, in no acute distress upon exam. HEENT: Normocephalic and atraumatic. Mucosa moist. NECK: Supple. No lymphadenopathy. LUNGS: Clear at this time. HEART: Regular rate and rhythm. ABDOMEN: Benign. EXTREMITIES: No clubbing, cyanosis or edema. She does have some noted hematoma to her knee and also pain with any type of movement of her lower leg secondary to a pelvic fracture. NEUROLOGIC: Does have noted proximal muscle weakness. LABORATORY DATA: White count is 7.6, H&H of 11 and 33 and platelet count was noted to be 273. Her sodium is 132, potassium 2.9, BUN and creatinine 16 and 0.7 and blood sugar is noted to be 99. Her admit UA was positive for nitrites and also for blood, leukocyte esterase and had many bacteria. Urine culture has been sent. ASSESSMENT: This is an 87-year-old female patient admitted to rehab with a working diagnosis of right superior and inferior pubic rami fractures with debility noted with it. The patient has potential to make improvement. We instituted the following multidisciplinary therapies including, but not limited to physical, occupational, respiratory, speech, nutritional services, prosthetics and orthotics. Given her complex medical condition and risk for more complications, rehabilitation services cannot be provided at a low level of care such as retirement facility. PLAN: 1. Admit to [facility] for intensive inpatient therapy to include the following disciplines: A. Physical therapy to improve gait, all transfer skills and bed mobility to a modified independent level. B. Occupational therapy to a modified independent level. C. Case management to assist with discharge planning and placement options. D. Nutrition to assist with nutritional needs. E. Rehabilitation nursing to assist in monitoring the patient's underlying medical condition and to assist with any type of bowel or bladder management. 2. The patient's current medication and medical care will be continued. 3. The patient will be placed on standard fall precautions. 4. The patient's estimated length of stay is approximately 7-10 days. 5. Discuss this patient during care team staff meeting this today. I am going to go ahead and place her on potassium supplementation and get this back up to par. We will treat pain as needed and I will see again in the a.m. HISTORY AND PHYSICAL [id number] MEIR CHEEK TRANSINT:[id number] Voice Confirmation ID: [id number] DOCUMENT ID: [id number] 04/08/2018 Edited for nikki and ruthy GÓMEZ. DALIA notes whether there has been none or any medical/functional change since admission: - No chance since preadmission screen. DALIA attests patient continues to be appropriate for IRF: - Continues to be appropriate. SAHIL BRAVO MD at 1538 CC: [id number] DICTATION DATE: 03/23/18 0827 CREATIVE RESOURCE MANAGER: 03/23/18 1058 ADM IN [facility] [address] [place] [address]
[~2018-03-22 15:46] MED LIST changes: +MAG-OXIDE400 MG PO
[2018-03-22 16:28] VITALS: BP 118/54; BMI 29.3
[2018-03-22 19:25] VITALS: BP 118/54
[2018-03-22 19:59] LABS: APPEARANCE HAZY (CLEAR); BILIRUBIN 1+ (NEGATIVE); COLOR DK YELLOW (YELLOW); GLUCOSE NEGATIVE (NEGATIVE); KETONE NEGATIVE (NEGATIVE); NITRITE POSITIVE (NEGATIVE); PROTEIN 1+ mg/dL (NEGATIVE); SPECIFIC GRAVITY 1.015 (1.005-1.020)
[2018-03-22 20:00] LABS: BACTERIA MANY /hpf (NONE SEEN); EPITHELIAL CELLS 0-5 /hpf (0-5)
[2018-03-23 06:41] LABS: BASOPHILS 0.3 % (0-2); EOSINOPHILS 0.9 % (0-7); HEMATOCRIT 32.8 % (36.0-48.0); HEMOGLOBIN 10.8 g/dL (12-16); IMMATURE GRANULOCYTES 0.4 % (0-5); LYMPHOCYTES 16.1 % (15-50); MCH 29.4 pg (26.0-34.0); MCHC 32.9 g/dL (31.0-37.0); MCV 89.4 fL (80.0-100.0); MONOCYTES 13.7 % (2-11); NEUTROPHILS 68.6 % (40-80); RBC 3.67 10x6/uL (4.00-5.40); RDW 12.9 % (11.5-14.5); WBC 7.6 10x3/uL (4.8-10.8)
[2018-03-23 06:47] LABS: PLATELET COUNT 273 10x3/uL (130-400)
[2018-03-23 07:03] LABS: CALC OSMOLALITY 265 mosm/kg (275-300); CALCIUM 8.4 mg/dL (8.5-10.1); CARBON DIOXIDE 33.3 mmol/L (21.0-32.0); CHLORIDE - SERUM 93 mmol/L (98-107); CREATININE - SERUM 0.7 mg/dL (0.6-1.3); GLUCOSE 99 mg/dL (74-106); SODIUM 132 mmol/L (136-145); UREA NITROGEN 16 mg/dL (7-18); eGFR NON AFRICAN AMERICAN 84 mL/min (90-120)
[2018-03-23 07:25] LABS: POTASSIUM - SERUM 2.9 mmol/L (3.5-5.1)
[2018-03-23 08:38] VITALS: BP 121/75
[2018-03-23 13:40] VITALS: Ht 154.9 cm; Wt 70.3 kg
[2018-03-23 19:00] VITALS: BP 96/39
[2018-03-24 19:46] VITALS: BP 16/56
[2018-03-25 07:01] LABS: BASOPHILS 0.4 % (0-2); EOSINOPHILS 1.6 % (0-7); HEMATOCRIT 32.2 % (36.0-48.0); HEMOGLOBIN 10.8 g/dL (12-16); IMMATURE GRANULOCYTES 0.4 % (0-5); LYMPHOCYTES 17.8 % (15-50); MCH 29.9 pg (26.0-34.0); MCHC 33.5 g/dL (31.0-37.0); MCV 89.2 fL (80.0-100.0); MEAN PLATELET VOLUME 9.2 fL (7.4-10.4); MONOCYTES 12.6 % (2-11); NEUTROPHILS 67.2 % (40-80); PLATELET COUNT 321 10x3/uL (130-400); RBC 3.61 10x6/uL (4.00-5.40); RDW 13.2 % (11.5-14.5); WBC 6.7 10x3/uL (4.8-10.8)
[2018-03-25 07:18] LABS: ANION GAP 10.8 mmol/L (8-16); CALCIUM 8.2 mg/dL (8.5-10.1); CARBON DIOXIDE 31.3 mmol/L (21.0-32.0); CREATININE - SERUM 0.8 mg/dL (0.6-1.3); POTASSIUM - SERUM 4.1 mmol/L (3.5-5.1)
[2018-03-25 07:51] VITALS: BP 115/61
[2018-03-25 20:00] VITALS: BP 127/58
[2018-03-26 08:41] VITALS: BP 116/54
[2018-03-26 20:00] VITALS: BP 136/57
[2018-03-27 09:11] VITALS: BP 117/58
[2018-03-27 20:00] VITALS: BP 112/70
[2018-03-28 06:58] LABS: BASOPHILS 0.5 % (0-2); EOSINOPHILS 1.5 % (0-7); HEMATOCRIT 32.8 % (36.0-48.0); HEMOGLOBIN 10.5 g/dL (12-16); IMMATURE GRANULOCYTES 0.8 % (0-5); LYMPHOCYTES 19.7 % (15-50); MCH 28.8 pg (26.0-34.0); MCV 89.9 fL (80.0-100.0); MEAN PLATELET VOLUME 8.5 fL (7.4-10.4); MONOCYTES 11.1 % (2-11); NEUTROPHILS 66.4 % (40-80); PLATELET COUNT 369 10x3/uL (130-400); RBC 3.65 10x6/uL (4.00-5.40); RDW 13.3 % (11.5-14.5); WBC 6.6 10x3/uL (4.8-10.8)
[2018-03-28 07:11] LABS: CALCIUM 8.7 mg/dL (8.5-10.1); CARBON DIOXIDE 28.1 mmol/L (21.0-32.0); CREATININE - SERUM 0.8 mg/dL (0.6-1.3); POTASSIUM - SERUM 4.1 mmol/L (3.5-5.1)
[2018-03-28 08:00] VITALS: BP 126/54
[2018-03-28 19:40] VITALS: BP 139/55
[2018-03-29 08:00] VITALS: BP 134/70
[2018-03-29 19:41] VITALS: BP 136/56
[2018-03-30 07:25] LABS: BASOPHILS 0.6 % (0-2); EOSINOPHILS 1.4 % (0-7); HEMATOCRIT 32.5 % (36.0-48.0); HEMOGLOBIN 10.4 g/dL (12-16); IMMATURE GRANULOCYTES 0.9 % (0-5); LYMPHOCYTES 21.2 % (15-50); MCH 28.7 pg (26.0-34.0); MCV 89.5 fL (80.0-100.0); MONOCYTES 8.8 % (2-11); NEUTROPHILS 67.1 % (40-80); PLATELET COUNT 417 10x3/uL (130-400); RBC 3.63 10x6/uL (4.00-5.40); RDW 13.4 % (11.5-14.5)
[2018-03-30 07:37] LABS: ANION GAP 11.2 mmol/L (8-16); CALCIUM 8.8 mg/dL (8.5-10.1); CARBON DIOXIDE 27.9 mmol/L (21.0-32.0); CREATININE - SERUM 0.8 mg/dL (0.6-1.3); POTASSIUM - SERUM 4.1 mmol/L (3.5-5.1)
[2018-03-30 08:01] VITALS: BP 127/67
[2018-03-30 21:07] VITALS: BP 113/63
[2018-03-31 08:00] VITALS: BP 119/66
[2018-03-31 19:15] VITALS: BP 114/67
[2018-04-01 06:10] LABS: BASOPHILS 0.9 % (0-2); HEMATOCRIT 32.3 % (36.0-48.0); HEMOGLOBIN 10.4 g/dL (12-16); IMMATURE GRANULOCYTES 1.1 % (0-5); LYMPHOCYTES 23.1 % (15-50); MCH 28.8 pg (26.0-34.0); MCHC 32.2 g/dL (31.0-37.0); MCV 89.5 fL (80.0-100.0); MEAN PLATELET VOLUME 9.1 fL (7.4-10.4); MONOCYTES 12.3 % (2-11); NEUTROPHILS 60.6 % (40-80); PLATELET COUNT 402 10x3/uL (130-400); RBC 3.61 10x6/uL (4.00-5.40); RDW 13.5 % (11.5-14.5); WBC 6.4 10x3/uL (4.8-10.8)
[2018-04-01 06:23] LABS: CALCIUM 8.2 mg/dL (8.5-10.1); CARBON DIOXIDE 28.5 mmol/L (21.0-32.0); CREATININE - SERUM 0.8 mg/dL (0.6-1.3); POTASSIUM - SERUM 4.5 mmol/L (3.5-5.1)
[2018-04-01 08:00] VITALS: BP 122/70
[2018-04-01 19:30] VITALS: BP 126/57
[2018-04-02 07:45] VITALS: BP 145/64
[2018-04-02 21:55] VITALS: BP 134/61
[2018-04-03 19:40] VITALS: BP 118/59
[2018-04-04 06:16] LABS: BASOPHILS 1.3 % (0-2); EOSINOPHILS 1.9 % (0-7); HEMATOCRIT 34.8 % (36.0-48.0); HEMOGLOBIN 11.1 g/dL (12-16); IMMATURE GRANULOCYTES 0.4 % (0-5); LYMPHOCYTES 25.4 % (15-50); MCH 29.1 pg (26.0-34.0); MCHC 31.9 g/dL (31.0-37.0); MCV 91.1 fL (80.0-100.0); MEAN PLATELET VOLUME 9.5 fL (7.4-10.4); MONOCYTES 9.3 % (2-11); NEUTROPHILS 61.7 % (40-80); PLATELET COUNT 386 10x3/uL (130-400); RBC 3.82 10x6/uL (4.00-5.40); RDW 13.9 % (11.5-14.5); WBC 6.9 10x3/uL (4.8-10.8)
[2018-04-04 06:48] LABS: ANION GAP 15.7 mmol/L (8-16); CALCIUM 8.4 mg/dL (8.5-10.1); CARBON DIOXIDE 24.9 mmol/L (21.0-32.0); CREATININE - SERUM 0.9 mg/dL (0.6-1.3); POTASSIUM - SERUM 4.6 mmol/L (3.5-5.1)
[2018-04-04 16:33] VITALS: BP 119/61
[2018-04-04 20:13] VITALS: BP 124/60
[2018-04-05 08:15] VITALS: BP 137/68
[2018-04-06 00:40] VITALS: BP 116/81
[2018-04-06 06:29] LABS: BASOPHILS 0.5 % (0-2); HEMATOCRIT 34.3 % (36.0-48.0); IMMATURE GRANULOCYTES 0.3 % (0-5); LYMPHOCYTES 18.7 % (15-50); MCH 29.3 pg (26.0-34.0); MCHC 32.1 g/dL (31.0-37.0); MCV 91.2 fL (80.0-100.0); MEAN PLATELET VOLUME 9.5 fL (7.4-10.4); MONOCYTES 8.9 % (2-11); NEUTROPHILS 70.6 % (40-80); PLATELET COUNT 419 10x3/uL (130-400); RBC 3.76 10x6/uL (4.00-5.40); RDW 13.9 % (11.5-14.5)
[2018-04-06 06:34] LABS: WBC 9.4 10x3/uL (4.8-10.8)
[2018-04-06 06:43] LABS: ANION GAP 14.4 mmol/L (8-16); CALCIUM 8.6 mg/dL (8.5-10.1); CARBON DIOXIDE 25.8 mmol/L (21.0-32.0); CREATININE - SERUM 0.8 mg/dL (0.6-1.3); POTASSIUM - SERUM 4.2 mmol/L (3.5-5.1)
[2018-04-06 08:00] VITALS: BP 108/68
[2018-04-06 19:00] VITALS: BP 103/55
[2018-04-07 07:59] VITALS: BP 144/67
[2018-04-07 19:00] VITALS: BP 103/52
[2018-04-08 06:09] LABS: BASOPHILS 0.4 % (0-2); HEMATOCRIT 33.9 % (36.0-48.0); HEMOGLOBIN 10.8 g/dL (12-16); IMMATURE GRANULOCYTES 0.3 % (0-5); LYMPHOCYTES 19.5 % (15-50); MCH 28.8 pg (26.0-34.0); MCHC 31.9 g/dL (31.0-37.0); MCV 90.4 fL (80.0-100.0); MEAN PLATELET VOLUME 9.8 fL (7.4-10.4); MONOCYTES 9.4 % (2-11); NEUTROPHILS 69.4 % (40-80); PLATELET COUNT 357 10x3/uL (130-400); RBC 3.75 10x6/uL (4.00-5.40); RDW 13.7 % (11.5-14.5)
[2018-04-08 06:10] LABS: WBC 6.8 10x3/uL (4.8-10.8)
[2018-04-08 07:28] LABS: ANION GAP 11.2 mmol/L (8-16); CALCIUM 8.4 mg/dL (8.5-10.1); CARBON DIOXIDE 29.3 mmol/L (21.0-32.0); CREATININE - SERUM 0.8 mg/dL (0.6-1.3); POTASSIUM - SERUM 4.5 mmol/L (3.5-5.1)
[2018-04-08 08:00] VITALS: BP 126/73
== END 2018-04-08 16:20 | disposition home health service (06) | DRG 561 ==
LOC: D.REHAB 15:46
PROVIDERS: Emergency Medicine
DX: S32.501D Unspecified fracture of right pubis, subsequent encounter for fracture with routine healing (principal); W19.XXXD Unspecified fall, subsequent encounter; I25.10 Atherosclerotic heart disease of native coronary artery without angina pectoris; R13.10 Dysphagia, unspecified; I10 Essential (primary) hypertension; Z95.5 Presence of coronary angioplasty implant and graft; K21.9 Gastro-esophageal reflux disease without esophagitis; J43.9 Emphysema, unspecified; M17.0 Bilateral primary osteoarthritis of knee; R53.81 Other malaise; K80.50 Calculus of bile duct without cholangitis or cholecystitis without obstruction; K80.80 Other cholelithiasis without obstruction; K44.9 Diaphragmatic hernia without obstruction or gangrene

== ENCOUNTER → 2018-06-07 08:18 | Outpatient (CLI) | payer MEDICARE, OTHER ==
[2018-03-23 13:40] VITALS: BMI 29.3
--- NOTE | ~2018-06-07 | HEMODYNAMI ---
PATIENT:MEIR CHEEK MEDICAL RECORD: [id number] : 34 LOCATION:[facility] ADMISSION DATE: 06/07/18 Generatedon:06/07/20189:27 Patient name: MEIR CHEEK Patient #: [id number] SSN: DO B: 1930 Date of study: 06/07/2018 Page: Of Hemodynamic Procedure Report Patient Data Patient Demographics Procedure consent was obtained First Name: MEIR Gender: Female Last Name: HAM : 1930 Middle Initial: J Age: 88 year(s) Patient #: [id number] Race: Additional ID: [id number] Contact details Address: [address] [place] [address] State: [place] City: [place] Zip code: [address] Past Medical History Allergies Allergen Reaction Date Comments Reported Other allergy 08/23/2016 PCN Penicillins 06/07/2018 Admission Admission Data Admission Date: 06/07/2018 Admission Time: 8:18 Procedure Procedure Types Cath Procedure Peripheral Cath Diagnostic Procedure Miscellaneous Aspiration/Injection (Joint) Procedure Description Procedure Date Procedure Date: 06/07/2018 Procedure Start Time: 9:09 Procedure Staff Name Function Caty Rubin RT Scrub Red Schmidt RT Monitor Trisha Fuentes RN Nurse Dk Joy MD Performing Physician Procedure Data Cath Procedure Fluoroscopy Diagnostic fluoroscopy Total fluoroscopy Time: 1.1 time: 1.1 min min Diagnostic fluoroscopy Total fluoroscopy dose: 11 dose: 11 mGy mGy Hemodynamics Rest Pre Cath Intra NCS Post Cath Procedure Log Time Note 9:02:44 Red Schmidt RT (R) (CV) sent for patient. Start room use. 9:02:52 Time tracking: Regular hours (M-F 7:00 - 5:00) 9:02:59 Patient received from Outpatients to IR Alert and oriented. Tansferred to table in Prone position. 9:03:02 Correct patient and procedure confirmed by team. 9:03:04 Signed procedure consent form obtained from patient. 9:03:06 Full Disclosure recording started 9:03:08 Pre-op teaching completed and patient verbalized understanding. 9:03:08 Pre-procedure instructions explained to patient. 9:03:25 Patient allergic to Penicillins 9:03:38 Is patient on blood thinner?No 9:04:07 Right Lumbar was prepped with betadine and draped in sterile fashion. 9:08:13 Physician arrived 9:08:14 Final Timeout: patient, procedure, and site verified with staff and physician. All members of the team are in agreement. 9:08:14 --------ALL STOP TIME OUT------ 9:08:17 Lumbar site verified by team. 9:08:27 Sedation plan: Local Anesthetic Medication:Lidocaine 9:08:40 Procedure started. 9:09:26 Local anesthetic to Lumbar area with Lidocaine 1% by Dk Joy MD.INITIAL ACCESS ONLY 9:09:35 SAFE-T PLUS MYELOGRAM TRAY opened to sterile field. 9:21:13 Procedure ended.(Physican Out) 9:22:15 Fluoroscopy time 01.10 minutes. 9:22:20 Fluoroscopy dose: 11 mGy 9:22:20 Flurop Dose total: 11 9:22:41 BANDAIDE APPLIED AND PT.SENT HOME 9:26:12 Full Disclosure recording stopped Device Usage Item Name Manufacture Quantity Catalog Hospital Part Current Minimal Lot# / Number Charge Number Stock Stock Serial# Code SAFE-T Care[employer]usion 1 [id number] PLUS MYELOGRAM TRAY Signature Audit [place] Stage Time Signature Unsigned Intra-Procedure 06/07/2018 Red 9:27:20 AM Roxana RT (R) (CV) Signatures Monitor : Red Signature : Roxana RT Date : Time : [facility] [address] [place] [address]
== END | disposition home or self-care (01) ==
LOC: D.RAD 08:18
DX: M53.3 Sacrococcygeal disorders, not elsewhere classified (principal)

== ENCOUNTER 2019-06-03 04:07 | Observation (INO) | payer MEDICARE, OTHER ==
[~2019-06-03] VITALS: Ht 154.9 cm; Wt 61.4 kg
--- NOTE | ~2019-06-03 | CN ---
PATIENT NAME:MEIR CHEEK MEDICAL RECORD: [id number] : 34 LOCATION:D. D.2114 ADMIT DATE: 06/03/19 ACCOUNT: [id number] CONSULTING PHYSICIAN: PATTI DOUGLAS MD REFERRING PHYSICIAN: JAMIR ADORNO MD DATE OF CONSULTATION: 06/03/2019 CARDIOLOGY CONSULTATION ADMITTING DIAGNOSES: 1. Chest pain. 2. Gastroesophageal reflux disease. 3. Nausea and vomiting. 4. Coronary artery disease. 5. Previous percutaneous transluminal coronary angioplasty stent. HISTORY OF PRESENT ILLNESS: Mrs. Cheek has had multiple GI issues including diarrhea, nausea, and vomiting. She developed chest pain, but she developed chest pain only after the nausea and vomiting. She does have a history of coronary artery disease, PTCA stent in 2015. The chest pain she had then is definitely different than the chest pain she is having now. Her EKG is normal. Troponin is normal. PHYSICAL EXAMINATION: CONSTITUTIONAL/GENERAL APPEARANCE: Well nourished, well developed, appears stated age. EYES: Lids and conjunctivae noninjected. No discharge. No pallor. ENT: Lips within normal limit. No cyanosis. No pallor. NECK: Carotid arteries, bilateral normal upstroke. No bruits. No thrills. No jugular venous pressure or distention. CERVICAL LYMPH NODES: Nontender. Nonenlarged. THYROID: Not enlarged. No nodules. CARDIOVASCULAR: Precordial exam, nondisplaced. No heaves or pericardial thrills. Rate and rhythm, regular. Heart sounds, normal S1, normal S2. No S3, no gallop, no rub. Systolic murmur, not heard. Diastolic murmur, not heard. RESPIRATORY: Respiratory effort, unlabored. Normal curvature. No thoracic deformity. No chest wall tenderness. Percussion, resonant. Auscultation, clear. No wheezes, no rales, no rhonchi. ABDOMEN: Soft, nondistended, nontender. No abdominal pain, no vomiting and normal appetite. MUSCULOSKELETAL: No joint tenderness, normal gait, normal tone. SKIN: Warm and dry. OVERALL IMPRESSION: Chest pain, this is most likely gastrointestinal and gastroesophageal reflux disease related. All cardiac studies are normal. No cardiac workup needs to be undertaken at this time. TRANSINT:[id number] Voice Confirmation ID: [id number] DOCUMENT ID: [id number] CONSULT REPORT [id number] MEIR CHEEK JEFFREY MD CC: [id number] DICTATION DATE: 06/03/19 1049 BRAZING MACHINE OPERATOR: 06/03/19 1305 ADM IN [place] [id number] [place] [id number]
--- NOTE | ~2019-06-03 | EC ---
PATIENT:MEIR CHEEK DATE OF SERVICE: 06/03/19 SEX: F MEDICAL RECORD: [id number] DATE OF : 34 LOCATION:D.M2 D.211 AGE OF PATIENT: 89 ADMISSION DATE: 06/03/19 REFERRING PHYSICIAN: INTERPRETING PHYSICIAN: PATTI SHERIFF MD ECHOCARDIOGRAM REPORT ECHO CHARGES 4 ECHO COMPLETE Date: 06/03/19 CLINICAL DIAGNOSIS: HTN, ATYPICAL CP ECHOCARDIOGRAPHIC MEASUREMENTS (adult normal given) AC root (d.<3.7cm) 3.0 cm LV Septum d (<1.2 cm> 0.8 cm Valve Excursion 2.1 cm LV Septum (systole) 1.3 cm Left Atria (s.<4.0cm> 3.3 cm LVPW d(<1.2cm) 0.8 cm RV (d.<2.3cm) 2.9 cm LVPW (sytole) 1.1 cm LV diastole(<5.6CM) 6.0 cm MV E-F(>70mm/sec) cm LV systole 4.5 cm LVOT Diameter 1.7 cm MV exc.(>10mm) cm Est.ejection fraction (50-75%) % DOPPLER: LVIT cm/sec A 78 cm/sec E 65 cm/sec LA cm/sec RVSP 32.6 mmHg LVOT 123 cm/sec AOP1/2T m/s Asc. Ao 145 cm/sec RVOT 54 cm/sec RA cm/sec PA 69 cm/sec AV Gradient Peak 8.5 mmHg AV Mean 3.7 mmHg AV Area 1.8 cm MV Gradient Peak 4.5 mmHg MV Mean 2.0 mmHg MV Area cm COMMENTS: Welder/Fabricator: Wendy JOSE Home Health Nurse Licensed Practical: 1 Dr. Sheriff TAPE# PACS Pericardial Effusion N DATE OF SERVICE: 06/03/2019 ECHOCARDIOGRAM FINDINGS: 1. Left ventricular chamber size is mildly dilated. Left ventricular systolic function is preserved at 55%. 2. Left atrium, right atrium, and right ventricle chamber sizes are within normal limits. 3. Valvular structures have normal structure and motion. ECHOCARDIOGRAM REPORT [id number] MEIR CHEEK 4. Doppler interrogation reveals mild mitral regurgitation, mild tricuspid regurgitation, no other valvular insufficiency or stenosis. Pulmonary systolic pressure estimated 33 mmHg. 5. No evidence of pericardial effusion or left ventricular thrombus. TRANSINT:[id number] Voice Confirmation ID: [id number] DOCUMENT ID: [id number] PATTI SHERIFF MD CC: [id number] DICTATION DATE: 06/04/19 1208 TRACTOR MECHANIC: 06/04/19 1727 DIS IN 06/04/19 [place] [id number] [place] [id number]
[2019-06-03] MEDS ORDERED: FLOMAX0.4 MG PO (04:42)
[2019-06-03 04:54] LABS: BASOPHILS 0.3 % (0-2); EOSINOPHILS 0.3 % (0-7); HEMATOCRIT 37.9 % (36.0-48.0); HEMOGLOBIN 12.5 g/dL (12-16); IMMATURE GRANULOCYTES 0.4 % (0-5); LYMPHOCYTES 19.5 % (15-50); MCH 29.4 pg (26.0-34.0); MCV 89.2 fL (80.0-100.0); MEAN PLATELET VOLUME 9.9 fL (7.4-10.4); MONOCYTES 9.1 % (2-11); NEUTROPHILS 70.4 % (40-80); PLATELET COUNT 284 10x3/uL (130-400); RBC 4.25 10x6/uL (4.00-5.40); RDW 13.1 % (11.5-14.5); WBC 7.4 10x3/uL (4.8-10.8)
[2019-06-03 04:55] LABS: APPEARANCE CLEAR (CLEAR); BILIRUBIN NEGATIVE (NEGATIVE); COLOR YELLOW (YELLOW); GLUCOSE NEGATIVE (NEGATIVE); KETONE SMALL mg/dL (NEGATIVE); NITRITE NEGATIVE (NEGATIVE); PROTEIN NEGATIVE (NEGATIVE); SPECIFIC GRAVITY 1.005 (1.005-1.020); UROBILINOGEN NORMAL (NORMAL)
[2019-06-03 05:02] LABS: CALC OSMOLALITY 255 mosm/kg (275-300); CALCIUM 8.3 mg/dL (8.5-10.1); CHLORIDE - SERUM 92 mmol/L (98-107); CREATININE - SERUM 0.8 mg/dL (0.6-1.3); GLUCOSE 114 mg/dL (74-106); POTASSIUM - SERUM 4.2 mmol/L (3.5-5.1); SODIUM 127 mmol/L (136-145); UREA NITROGEN 12 mg/dL (7-18); eGFR NON AFRICAN AMERICAN 72 mL/min (90-120)
[2019-06-03 05:20] LABS: ALBUMIN 3.8 g/dL (3.4-5.0); ALKALINE PHOSPHATASE 72 U/L (30-120); ALT (SGPT) 17 U/L (10-68); BILIRUBIN - TOTAL 0.51 mg/dL (0.2-1.3); CREATINE KINASE 64 UL (21-215); LIPASE 257 U/L (73-393); MAGNESIUM - SERUM 1.9 mg/dL (1.8-2.4); PRO BNP 194 pg/mL (0-450); PROTEIN - SERUM 7.2 g/dL (6.4-8.2); THYROID STIMULATING HORMONE 0.74 uIU/mL (0.36-3.74); TROPONIN-I < 0.017 ng/mL (0.000-0.060)
--- NOTE | 2019-06-03 06:00 | NUR ---
ADMIT TO ROOM 4 FROM ER. ACCOMPANIED BY DAUGHTER. ALERT/ORIENTED. AMBULATORY. IVF NS @ 125ML/HR INFUSING TO LFA. NPO UNTIL SEEN BY BUSINESS PERFORMANCE SPECIALIST THIS AM. ADMISSION HISTORY AND ASSESSMENT COMPLETED. HOME MEDS REVIEWED. PLAN OF CARE INITIATED.
[2019-06-03] MEDS ORDERED: PAROXETINE HCL10 MG PO (06:09)
[2019-06-03] MEDS ORDERED: OMEPRAZOLE40 MG PO (06:09)
[2019-06-03 06:25] VITALS: BP 157/67; BMI 25.5
[2019-06-03 08:32] VITALS: BP 107/59
[2019-06-03 10:51] VITALS: Ht 154.9 cm; Wt 61.4 kg
[2019-06-03 11:59] VITALS: BP 144/61
[2019-06-03 16:30] VITALS: BP 145/65
--- NOTE | 2019-06-03 19:37 | NUR ---
REPORT RECIEVED AND INITIAL ROUNDS COMPLETED. PT RESTING IN BED. SR/67 PER TELEMETRY. NS @ 125ML/HR TO LFA. NONLABORED RESPIRATIONS ON ROOM AIR. CPOC.
--- NOTE | 2019-06-03 19:41 | NUR ---
INSTRUCT ON NPO AFTER MIDNIGHT FOR PROCEDURE IN AM.
[2019-06-03 20:30] VITALS: BP 142/56
--- NOTE | 2019-06-03 20:45 | NUR ---
BEDTIME MEDS GIVEN. ZOFRAN IV GIVEN FOR NAUSEA. HELD QUESTAN DUE TO PATIENT NOT HAVING ANY BM'S TODAY AND ON ADMIT ALSO STATED SHE DID NOT HAVE ANY DIARRHEA. PT RESTING. IVF INFUSING. CALL LIGHT IN REACH.
[2019-06-04 00:20] VITALS: BP 143/70
[2019-06-04 04:30] VITALS: BP 161/69
--- NOTE | 2019-06-04 05:19 | NUR ---
NO CHANGE FROM INITIAL SHIFT ASSESSMENT. SR PER TELEMETRY. NS @ 125ML/HR INFUSING TO LFA. CPOC. CALL LIGHT IN REACH.
--- NOTE | 2019-06-04 05:39 | NUR ---
SR PER TELEMETRY. PT STATES SHE HAS NOT SLEPT WELL, POSSIBLY ANXIOUS. REVIEWED MEDS. PT TOOK A XANAX WITH SIP OF WATER AND WILL TRY TO RELAX. REMAINS NPO FOR UPPER GI THIS AM.
[2019-06-04 06:27] LABS: CALC OSMOLALITY 256 mosm/kg (275-300); CALCIUM 7.7 mg/dL (8.5-10.1); CARBON DIOXIDE 26.6 mmol/L (21.0-32.0); CHLORIDE - SERUM 96 mmol/L (98-107); CKMB 0.9 U/L (0.0-3.6); CREATININE - SERUM 0.6 mg/dL (0.6-1.3); GLUCOSE 96 mg/dL (74-106); POTASSIUM - SERUM 3.9 mmol/L (3.5-5.1); SODIUM 129 mmol/L (136-145); eGFR NON AFRICAN AMERICAN > 90 mL/min (90-120)
[2019-06-04 06:30] LABS: UREA NITROGEN 8 mg/dL (7-18)
--- NOTE | 2019-06-04 07:20 | NUR ---
RECIEVE REPORT. ALERT AND ORIENTED X4. SITTING UP IN BED. DENIES ANY NEEDS AT THIS TIME. CONTINUE PLAN OF CARE AND SAFETY PRECAUTIONS.
[2019-06-04 08:07] VITALS: BP 155/68
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
[2019-06-04 12:35] VITALS: BP 129/56
[2019-06-04] MEDS ORDERED: COZAAR50 MG PO (15:46)
[2019-06-04] MEDS ORDERED: PROTONIX40 MG PO (15:46)
[2019-06-04] MEDS ORDERED: QUESTRAN LIG1 PACKET PO (15:52)
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
== END 2019-06-04 16:45 | disposition home or self-care (01) ==
LOC: D.ER 04:07 → D.M2 05:15 → OBSVTIME 05:15 → D.M2 06-04 16:45
PROVIDERS: Family Medicine; ADMIT Family Medicine; ATTEND Family Medicine
DX: R07.89 Other chest pain (principal); K91.1 Postgastric surgery syndromes; Y84.9 Medical procedure, unspecified as the cause of abnormal reaction of the patient, or of later complication, without mention of misadventure at the time of the procedure; I10 Essential (primary) hypertension; K21.9 Gastro-esophageal reflux disease without esophagitis; R11.2 Nausea with vomiting, unspecified; T43.225A Adverse effect of selective serotonin reuptake inhibitors, initial encounter; E87.1 Hypo-osmolality and hyponatremia; T50.2X5A Adverse effect of carbonic-anhydrase inhibitors, benzothiadiazides and other diuretics, initial encounter; I25.10 Atherosclerotic heart disease of native coronary artery without angina pectoris; K44.9 Diaphragmatic hernia without obstruction or gangrene

== ENCOUNTER 2019-12-07 09:40 | Emergency (ER) | payer MEDICARE, OTHER ==
[~2019-12-07] VITALS: Ht 154.9 cm; Wt 65.9 kg
[~2019-12-07 09:40] MED LIST changes: +FLOMAX0.4 MG PO; +OMEPRAZOLE40 MG PO; +PAROXETINE HCL10 MG PO; +PROTONIX40 MG PO; +QUESTRAN LIG1 PACKET PO
[2019-12-07 09:43] VITALS: Ht 154.9 cm; Wt 65.9 kg
[2019-12-07 10:42] LABS: BILIRUBIN NEGATIVE (NEGATIVE); GLUCOSE NEGATIVE (NEGATIVE); KETONE NEGATIVE (NEGATIVE); NITRITE NEGATIVE (NEGATIVE); UROBILINOGEN NORMAL (NORMAL)
[2019-12-07 10:43] LABS: RED CELLS - URINE 0-5 /hpf (0-5); WHITE CELLS - URINE 0-5 /hpf (NEGATIVE)
[2019-12-07 10:44] LABS: BACTERIA FEW /hpf (NEGATIVE)
[2019-12-07 11:00] LABS: BASOPHILS 0.4 % (0-2); EOSINOPHILS 0.5 % (0-7); HEMATOCRIT 35.6 % (36.0-48.0); HEMOGLOBIN 11.1 g/dL (12-16); IMMATURE GRANULOCYTES 0.1 % (0-5); LYMPHOCYTES 15.7 % (15-50); MCHC 31.2 g/dL (31.0-37.0); MCV 89.9 fL (80.0-100.0); MONOCYTES 8.9 % (2-11); NEUTROPHILS 74.4 % (40-80); PLATELET COUNT 242 10x3/uL (130-400); RBC 3.96 10x6/uL (4.00-5.40); RDW 14.2 % (11.5-14.5); WBC 7.4 10x3/uL (4.8-10.8)
[2019-12-07 11:09] LABS: ANION GAP 10.2 mmol/L (8-16); CALCIUM 7.8 mg/dL (8.5-10.1); CARBON DIOXIDE 29.8 mmol/L (21.0-32.0); CREATININE - SERUM 0.9 mg/dL (0.6-1.3)
[2019-12-07 11:15] LABS: ALBUMIN 3.4 g/dL (3.4-5.0); BILIRUBIN - TOTAL 0.33 mg/dL (0.2-1.3); PROTEIN - SERUM 6.7 g/dL (6.4-8.2)
[2019-12-07 11:26] LABS: INR 0.98 (0.85-1.17)
[2019-12-07 12:40] VITALS: BP 172/67
== END 2019-12-07 12:40 | disposition home or self-care (01) ==
LOC: D.ER 09:40
PROVIDERS: Emergency Medicine
DX: S70.02XA Contusion of left hip, initial encounter (principal); S70.12XA Contusion of left thigh, initial encounter; S01.01XA Laceration without foreign body of scalp, initial encounter; S61.511A Laceration without foreign body of right wrist, initial encounter; W19.XXXA Unspecified fall, initial encounter; Y93.9 Activity, unspecified; Y92.9 Unspecified place or not applicable; R51 Headache; I10 Essential (primary) hypertension; J44.9 Chronic obstructive pulmonary disease, unspecified; K21.9 Gastro-esophageal reflux disease without esophagitis

== ENCOUNTER 2020-01-30 16:56 | Observation (INO) | payer MEDICARE ==
[~2020-01-30] VITALS: Ht 154.9 cm; Wt 66.8 kg
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
[2020-01-30 17:01] VITALS: Ht 154.9 cm; Wt 66.8 kg
[2020-01-30 18:00] LABS: BASOPHILS 0.3 % (0-2); EOSINOPHILS 0.3 % (0-7); HEMATOCRIT 33.8 % (36.0-48.0); HEMOGLOBIN 10.6 g/dL (12-16); IMMATURE GRANULOCYTES 0.3 % (0-5); LYMPHOCYTES 14.2 % (15-50); MCHC 31.4 g/dL (31.0-37.0); MCV 89.4 fL (80.0-100.0); MONOCYTES 6.9 % (2-11); PLATELET COUNT 234 10x3/uL (130-400); RBC 3.78 10x6/uL (4.00-5.40); RDW 13.8 % (11.5-14.5); WBC 10.9 10x3/uL (4.8-10.8)
[2020-01-30 18:11] LABS: CALC OSMOLALITY 276 mosm/kg (275-300); CALCIUM 8.2 mg/dL (8.5-10.1); CARBON DIOXIDE 26.3 mmol/L (21.0-32.0); CHLORIDE - SERUM 106 mmol/L (98-107); POTASSIUM - SERUM 3.7 mmol/L (3.5-5.1); SODIUM 135 mmol/L (136-145); UREA NITROGEN 21 mg/dL (7-18); eGFR NON AFRICAN AMERICAN 55 mL/min (90-120)
[2020-01-30 18:13] LABS: APTT 31.8 SECONDS (22.8-39.4); INR 0.96 (0.85-1.17); PROTIME 12.8 SECONDS (11.6-15.0)
[2020-01-30 18:16] VITALS: BP 151/73
[2020-01-30 18:16] LABS: GLUCOSE 177 mg/dL (74-106)
[2020-01-30 18:28] LABS: ALBUMIN 3.3 g/dL (3.4-5.0); ALKALINE PHOSPHATASE 81 U/L (30-120); ALT (SGPT) 17 U/L (10-68); BILIRUBIN - TOTAL 0.23 mg/dL (0.2-1.3); CKMB 1.3 U/L (0.0-3.6); CREATINE KINASE 47 UL (21-215); MAGNESIUM - SERUM 1.5 mg/dL (1.8-2.4); PROTEIN - SERUM 6.4 g/dL (6.4-8.2); TROPONIN-I < 0.017 ng/mL (0.000-0.060)
--- NOTE | 2020-01-30 18:32 | NUR ---
REPORTS PAIN BEFORE NTG TABS 8/10. AFTER 1ST NTG TAB PAIN DECREASED TO 6/10. AFTER 2ND NTG AND 5 MIN SHE DENIES PAIN BUT FEELS A TIGHTNESS.
[2020-01-30 19:12] VITALS: BP 128/70
--- NOTE | 2020-01-30 19:30 | NUR ---
REPORT TO EVER GUAJARDO
[2020-01-31 00:30] VITALS: BP 128/64
--- NOTE | 2020-01-31 00:33 | NUR ---
COVID SWAB SENT TO LAB
[2020-01-31 00:54] LABS: CKMB 1.6 U/L (0.0-3.6); CREATINE KINASE 47 UL (21-215); TROPONIN-I < 0.017 ng/mL (0.000-0.060)
[2020-01-31 02:33] VITALS: BP 123/61
[2020-01-31 04:00] VITALS: BP 136/69
[2020-01-31 06:10] VITALS: BP 115/56
[2020-01-31 06:10] LABS: BASOPHILS 0.6 % (0-2); EOSINOPHILS 1.4 % (0-7); HEMATOCRIT 31.4 % (36.0-48.0); HEMOGLOBIN 9.7 g/dL (12-16); IMMATURE GRANULOCYTES 0.3 % (0-5); LYMPHOCYTES 24.9 % (15-50); MCH 27.5 pg (26.0-34.0); MCHC 30.9 g/dL (31.0-37.0); MEAN PLATELET VOLUME 9.9 fL (7.4-10.4); MONOCYTES 9.3 % (2-11); NEUTROPHILS 63.5 % (40-80); PLATELET COUNT 232 10x3/uL (130-400); RBC 3.53 10x6/uL (4.00-5.40); RDW 13.9 % (11.5-14.5)
[2020-01-31 06:20] LABS: WBC 6.6 10x3/uL (4.8-10.8)
[2020-01-31 06:22] LABS: CALCIUM 8.2 mg/dL (8.5-10.1); CARBON DIOXIDE 29.4 mmol/L (21.0-32.0); CHLORIDE - SERUM 108 mmol/L (98-107); CKMB 1.2 U/L (0.0-3.6); CREATINE KINASE 48 UL (21-215); CREATININE - SERUM 0.9 mg/dL (0.6-1.3); SODIUM 141 mmol/L (136-145); TROPONIN-I < 0.017 ng/mL (0.000-0.060); UREA NITROGEN 16 mg/dL (7-18); eGFR NON AFRICAN AMERICAN 63 mL/min (90-120)
[2020-01-31 06:29] LABS: CALC OSMOLALITY 281 mosm/kg (275-300); GLUCOSE 91 mg/dL (74-106); POTASSIUM - SERUM 4.5 mmol/L (3.5-5.1)
--- NOTE | 2020-01-31 08:35 | NUR ---
PT. REFUSED 0645 NITRO PASTE. PT. STATES THAT IT IS GIVING HER A HEADACHE.
--- NOTE | 2020-01-31 09:27 | NUR ---
0927- PT BEING TRANSPORTED TO PROTECTIVE OFFICER VIA STRETCHER.
--- NOTE | 2020-01-31 10:55 | NUR ---
PT RECEIVED VIA STRETCHER FROM CASKET UPHOLSTERER FOR RECOVERY. PT AWAKE BUT DROWSY, DENIES PAIN OR DISCOMFORT AT THIS TIME. IV PATENT INFUSING VIA L ARM PER ORDERS. 6FR EXOCELE TO R GROIN, DRESSING CDI NO S/S HEMATOMA OR BLEEDING NOTED. LEG PINK AND WARM, PEDAL PULSES PALPABLE. PT INSTRUCTED TO KEEP HEAD FLAT ON PILLOW AND LEG STRAIGHT. PT PLACED ON CARDIAC MONITORS AND O2 VIA NC AT 2L. HR NSR RATE 68, BP 126/71, RR 10, SAT 95. CALL LIGHT IN REACH
[2020-01-31] MEDS ORDERED: PLAVIX75 MG PO (11:08)
[2020-01-31] MEDS ORDERED: PRAVACHOL20 MG PO (11:10)
--- NOTE | 2020-01-31 11:15 | NUR ---
PT RESTING COMFORTABLY, GROIN SOFT, NO S/S HEMATOMA. VSS AT PRESENT. DAUGHTER AT BS, CALL LIGHT IN REACH
[2020-01-31 11:29] LABS: CHOL - HDL RATIO 2.1 ratio (2.3-4.1)
--- NOTE | 2020-01-31 12:01 | NUR ---
GROIN SOFT, DRESSING REMAINS CDI NO S/S HEMATOMA OR BLEEDING. EXTREMITY WARM AND PINK. PT C/O HEADACHE FROM TAKING NITRO IN ER. TYLENOL 650MG GIVEN PER ORDERS W SIP OF WATER. PT DENIES OTHER PAIN OR NEEDS AT THIS TIME. CALL LIGHT IN REACH, DAUGHTER REMAINS AT BS
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
--- NOTE | 2020-01-31 13:00 | NUR ---
PT CONTINUES SLEEPING, VERBALLY AROUSABLE. STATES HEADACHE IS MUCH BETTER NOW. GROIN SOFT, DRESSING CDI NO S/S HEMATOMA. CALL LIGHT IN REACH.
--- NOTE | 2020-01-31 13:40 | NUR ---
GROIN SOFT, PT PLACED ON BEDPAN, VOIDED 300 CC CLEAR YELLOW URINE. HOB ELEVATED SLIGHTLY. PT AWAKE AND ALERT, DENIES PAIN OR DISCOMFORT. COFFEE SERVED, OFFERED SANDWICH, PT DECLINES AT THIS TIME. VSS, CALL LIGHT IN REACH
--- NOTE | 2020-01-31 14:00 | NUR ---
PT DOING WELL, GROIN SOFT, NO S/S HEMATOMA. VSS. CALL LIGHT IN REACH, DAUGHTER REMAINS AT BS.
--- NOTE | 2020-01-31 14:30 | NUR ---
ALL DISCHARGE INSTRUCTIONS INCLUDING MEDS (NEW MEDS), RESTRICTIONS, AND F/U APPT WITH PT AND HER DAUGHTER, BOTH VERBALIZE UNDERSTANDING.
--- NOTE | 2020-01-31 14:37 | NUR ---
R GROIN SITE SOFT, C/D/I. PIV D/C'D INTACT, DSG APPLIED. PT ALLOWED UP TO GET DRESSED AND GO TO BR WITH DAUGHTER ASSISTING.
--- NOTE | 2020-01-31 14:47 | NUR ---
PT D/C'D TO PRIVATE VEHICLE WITH DAUGHTER. PT HAS ALL PAPERWORK AND BELONGINGS.
--- NOTE | 2020-02-01 10:47 | OP ---
PATIENT NAME: MEIR CHEEK MEDICAL RECORD: [id number] :32 LOCATION:[facility] ADMISSION DATE:01/30/20 SURGEON: NADIR GAN MD DATE OF OPERATION: 01/31/2020 PROCEDURE: Left heart cath, selective coronary angiography plus iFR wire to the LAD plus stenting to the LAD, right femoral artery approach. CATHETERS: A 5-Spanish sheath, 5/4 left and right Giuliano, 5/4 pig. The procedure was well tolerated. The patient returned to the yusuf. Sheath removed. ExoSeal device placed. FINDINGS: Left ventriculography in 30-degree LORENZANA view: Normal wall motion. Normal systolic function. CORONARY ANATOMY: LEFT MAIN: Free of disease. LAD: Appeared to show end-stent restenosis. This was confirmed with iFR wire, abnormal at 0.62. CIRCUMFLEX: Small vessel, free of disease. RIGHT CORONARY ARTERY: Dominant right, free of disease. ASSESSMENT: End-stent restenosis, confirmed by iFR. PLAN: For intervention momentarily. DESCRIPTION OF PROCEDURE: A 300 cm BMW wire was placed across the 80% stenosed LAD down to this portion of vessel. Stent deployed was a 3.0 x 15 mm nondrug-eluting stent, bare metal, up to 14 atmospheres for 45 seconds. Final angiography shows excellent resolution of 80% stenosis. No significant residual. BA flow was 3 throughout the procedure. Heparin and Integrilin were used during the case. Sheath closed with ExoSeal device. Plavix was loaded in the lab. NTS:[id number] Voice Confirmation ID: [id number] DOCUMENT ID: [id number] NADIR GAN MD at 1047 CC: [id number] DICTATION DATE: 01/31/20 1054 JOURNEYMAN MECHANIC: 01/31/202026 DIS IN 01/31/20 [address] [place] [address]
== END 2020-01-31 14:47 | disposition home or self-care (01) ==
LOC: D.ER 16:56 → OBSVTIME 20:03 → D.EDHOLD 20:03 → D.CLR 20:03
PROVIDERS: Emergency Medicine; Internal Medicine Interventional Cardiology; ADMIT Family Medicine; ATTEND Family Medicine
DX: I25.110 Atherosclerotic heart disease of native coronary artery with unstable angina pectoris (principal); R07.9 Chest pain, unspecified; E83.42 Hypomagnesemia; K21.9 Gastro-esophageal reflux disease without esophagitis; J44.9 Chronic obstructive pulmonary disease, unspecified; K52.9 Noninfective gastroenteritis and colitis, unspecified; I24.9 Acute ischemic heart disease, unspecified; I10 Essential (primary) hypertension

== ENCOUNTER → 2020-08-05 10:15 | Outpatient (CLI) | payer MEDICARE, OTHER ==
[~2020-08-05 10:15] MED LIST changes: +PRAVACHOL20 MG PO
== END | disposition home or self-care (01) ==
LOC: D.RAD 10:15
DX: R12 Heartburn (principal); R10.13 Epigastric pain; R13.10 Dysphagia, unspecified